=== PATIENT | female | born 1970 | race Caucasian/White ===

== ENCOUNTER → 2018-05-08 10:24 | Outpatient (CLI) | payer MEDICAID, SELFPAY ==
--- NOTE | 2018-05-08 10:26 | RAD_ITS ---
STUDY: X-RAY - RIGHT WRIST REASON FOR EXAM: Postop. TECHNIQUE: 3 view(s) of the wrist were obtained. COMPARISON: None. FINDINGS: There is an orthopedic plate and screws transfixing a distal radial fracture in anatomical alignment and position. There is a suspected intra-articular body at the dorsal aspect of the radiocarpal articulation. Normal distal radioulnar articulation. Normal carpal bones. Normal carpal articulations. Normal carpometacarpal articulation of the thumb. Normal second through fifth carpometacarpal articulations. Normal visualized metacarpal bones. The soft tissue structures are unremarkable. RAD/Wrist min 3 Views IMPRESSION: ORIF of distal radial fracture in anatomical alignment and position. Suspected intra-articular body at the dorsal aspect of the radiocarpal compartment. Electronically Signed: Neri Beyer MD at 15:13 EDT Tel , Service support ,
== END ==
PROVIDERS: Referring Provider Orthopaedic Surgery; Visit Provider Orthopaedic Surgery
DX: M25.531 Pain in right wrist (principal)
CPT/HCPCS: 73110

== ENCOUNTER → 2018-06-09 09:00 | Outpatient (CLI) | payer MEDICAID, SELFPAY ==
--- NOTE | 2018-06-09 09:01 | CT_ITS ---
Exam: CT of the right wrist. HISTORY: Pain. Previous fractures and surgeries. COMPARISON: Radiographs 05/08/2013. FINDINGS: This examination confirms satisfactory position of a compression plate and screws across the dorsal distal radius, for previous fracture repair. Currently no fracture lines are seen. The bone contour is normal. No complication is seen related to the compression plate or screws. There is a small calcific density approximately 3 mm in size just distal to the edge of the compression plate, and alongside the posterior lip of the radial metaphysis. This appears to be within soft tissues and not within the articular space. It does not appear to represent an intra-articular loose body is suggested on the radiographs. There is a normal appearance to the distal ulna. There is a normal appearance of the carpal bones. No significant degenerative changes are seen of the radiocarpal, intercarpal, carpometacarpal joints. Soft tissues are very poorly evaluated by extremity CT scan, but no gross soft tissue abnormality is seen. CT/Extremity Upper without Contra IMPRESSION: No definite abnormality seen other than the compression plate and screws of the distal radius. Electronically Signed: Manish Montana MD at 19:41 EDT , Service support ,
== END ==
PROVIDERS: Referring Provider Orthopaedic Surgery; Visit Provider Orthopaedic Surgery
DX: M25.531 Pain in right wrist (principal); Z98.890 Other specified postprocedural states
CPT/HCPCS: 73200

== ENCOUNTER 2018-06-13 09:33 | Emergency (ER) | payer MEDICAID, SELFPAY ==
[2018-06-13 09:34] VITALS: BP 122/75; PULSE 76; RESP 20; TEMP 36.4; O2SAT 94; BMI 35.6
--- NOTE | 2018-06-13 10:14 | ED.VISSUMM ---
- ER Visit Summary Date of Service: 06/13/18 Chief Complaint: Cough History of Present Illness: The patient is a 47 F past medical history of asthma and depression. Patient states for the past week she is nonproductive cough with wheezing. Subjective fever. Denies any nausea, vomiting or diarrhea. Patient states she was treated urgent care in the last several days. Placed on prednisone which she is nearly out of. Tessalon Perles which she states is not helping her cough. And has an inhaler. She does smoke about half pack of cigarettes a day. She states that at the urgent care they did a chest x-ray which she states showed no signs of pneumonia. Physical Examination: Well-appearing middle-age female. Vital signs are stable afebrile. Pulse ox 94% on room air no signs of hypoxia. No distress. H EENT exam moist mucous membranes posterior pharynx normal. Nasal congestion but no purulent discharge. TMs normal bilaterally. Neck nontender no lymphadenopathy. Trachea midline. Lungs dry cough. Expiratory wheezing. No rales nor rhonchi. Equal metrical. No signs of pneumonia. Heart regular rate and rhythm no murmur. Abdomen soft nontender. Moving all 4 extremities. Calves nontender no edema. Back nontender. Neurologically awake and alert no focal motor deficits. Test Results: None Emergency Department Course and Treatment: Patient will be written for prednisone 40 mg a day. Hycodan cough syrup. I explained her she did not need an antibiotic if this is a viral illness. She needs to stop smoking. Treatment Plan: Symptomatic treatment. Plenty of fluids and rest. Follow-up if not improving. Stop smoking. Return if worse. Disposition: Discharge Impression: Viral bronchitis Tobacco abuse This note was generated with [employer] dictation software. It may contain incorrect words, spelling, and punctuation that were not noted in review of the chart prior to signing ED Disposition - Plan for ED Patient: Chief Complaint: Cough Referrals: Care Physician,No Primary [Primary Care Provider] -
--- NOTE | 2018-06-13 10:17 | ED.DEP ---
ED Disposition - Plan for ED Patient: Disposition: Home or Assisted Living Chief Complaint: Cough Instructions: ED Bronchitis Asthmatic Prescriptions: Hydrocodone Bit/Homatropine [Hycodan Syrup] 10 ml GT Q4H PRN PRN 5 Days udc PRN Reason: Cough Prednisone [Deltasone] 40 mg PO DAILY 7 Days tab Referrals: Care Physician,No Primary [Primary Care Provider] - 10-14 Days if not better Additional Instructions: Stop smoking! Prednisone 40 mg a day for 7 days. Do not take both my prescription and your prior one just use one prescription at this dose. Inhaler as needed. Hycodan cough syrup for cough suppression. Do not drive while using Hycodan.
--- NOTE | 2018-06-14 09:52 | CM.ED ---
ED CALLBACK: Follow-up call placed to patient with no answer. Message states her voicemail has not yet been setup. Will reattempt call as time allows.
== END 2018-06-13 10:24 | disposition home or self-care (01) ==
PROVIDERS: Emergency Provider Emergency Medicine
DX: J20.8 Acute bronchitis due to other specified organisms (principal); F17.210 Nicotine dependence, cigarettes, uncomplicated; J45.909 Unspecified asthma, uncomplicated; F32.9 Major depressive disorder, single episode, unspecified; Z79.899 Other long term (current) drug therapy
CPT/HCPCS: 99282

== ENCOUNTER 2019-07-10 08:09 | Emergency (ER) | payer MEDICAID, SELFPAY ==
[2019-07-10 08:10] VITALS: BP 119/74; PULSE 83; RESP 18; TEMP 36.6; O2SAT 100; BMI 33.0
--- NOTE | 2019-07-10 08:28 | ED.VISSUMM ---
- ER Visit Summary Date of Service: 07/10/19 Chief Complaint: Back pain History of Present Illness: The patient is a 48 F with low back pain since yesterday. This happened after bending forward. The pain is in her lower back and does not radiate. Worse with movement. Patient denies associated symptoms like weakness or numbness. Denies GI, , or SCRATCH BRUSHER symptoms. Denies fever or recent illness. Denies any history of back surgery. Denies any history of immune compromise, fractures, or trauma. Physical Examination: Afebrile and vital signs are unremarkable. Alert and oriented. No acute distress. Mid lumbar spine tenderness to palpation. Otherwise overlying skin is normal. Straight leg raise negative. Good strength and sensation. Neurovascular intact distally. Test Results: None indicated Emergency Department Course and Treatment: Patient has myofascial back pain. She was treated with Norflex and Toradol. Will reassess. On reevaluation, patient is better. Will discharge on prescription for naproxen and Flexeril. Follow-up with primary care. Return for any new or worsening issues. Treatment Plan: As above Disposition: Discharged Impression: Lumbar back pain This note was generated with [employer] dictation software. It may contain incorrect words, spelling, and punctuation that were not noted in review of the chart prior to signing ED Disposition - Plan for ED Patient: Referrals: Care Physician,No Primary [Primary Care Provider] -
[2019-07-10] MEDS: Ketorolac 60 MG/2 ML Vial IM (08:37)
[2019-07-10] MEDS: Orphenadrine 60 MG/2 ML Ampul IM (08:37)
--- NOTE | 2019-07-10 09:06 | ED.DEP ---
ED Disposition - Plan for ED Patient: Instructions: BACK PAIN (Acute or Chronic) Prescriptions: cycloBENZAPRine HCl [Flexeril] 10 mg PO TID PRN #20 tab PRN Reason: Muscle Spasm Prescription Printed Naproxen [Naprosyn] 500 mg PO BID PRN #20 tab Prescription Printed Referrals: Pilar Perez [NON-STAFF] - As Needed
[2019-07-10 09:10] VITALS: RESP 16
--- NOTE | 2019-07-10 09:10 | ED.RN ---
REVIEWED D/C INSTRUCTIONS, FOLLOW UP CARE, PRESCRIPTIONS, AND S/S THAT WOULD WARRANT A RETURN TO THE ED WITH PT. PT VERBALIZED AN UNDERSTANDING AND DENIES FURTHER QUESTIONS FOR THIS RN. PT SKIN P/W/D, RESP EVEN AND UNLABORED, PT A&O X 3, NO DISTRESS NOTED. PT AMBULATED OUT OF ED, GAIT STEADY.R
== END 2019-07-10 09:12 | disposition home or self-care (01) ==
LOC: ED 08:30
PROVIDERS: Emergency Provider Emergency Medicine
DX: M54.5 Low back pain (principal); J45.909 Unspecified asthma, uncomplicated; I10 Essential (primary) hypertension; F32.9 Major depressive disorder, single episode, unspecified; Z87.01 Personal history of pneumonia (recurrent); Z86.19 Personal history of other infectious and parasitic diseases; Z79.899 Other long term (current) drug therapy; Z72.0 Tobacco use
CPT/HCPCS: 96372; 99282

== ENCOUNTER 2019-08-11 12:34 | Emergency (ER) | payer MEDICAID, SELFPAY ==
[2019-08-11 12:35] VITALS: BP 139/89; PULSE 86; RESP 17; TEMP 36.3; O2SAT 100; O2SAT 96; BMI 33.8
--- NOTE | 2019-08-11 13:24 | RAD_ITS ---
STUDY: X-RAY - RIGHT HAND REASON FOR EXAM: Female, 48 years old. Hand pain, worse in the fifth metatarsal, after fall. TECHNIQUE: Three view(s) of the hand on 4 images. COMPARISON: None. FINDINGS: Bones: Comminuted minimally displaced fracture of the base of the fifth metacarpal with intra-articular extension. Dorsal plate and screw fixation of the distal radius. Joints: The joints are unremarkable. Soft tissues: The soft tissues are unremarkable. Foreign body: None RAD/Hand Min 3 Views IMPRESSION: Comminuted minimally displaced fracture of base of fifth metacarpal with intra-articular extension. Electronically Signed: Bay Clarke MD at 13:54 EST , Service support ,
--- NOTE | 2019-08-11 14:14 | ED.DCSUM_ITS ---
History of Present Illness Chief Complaint: Upper Extremity Injury Informant: Patient Onset: Yesterday Narrative: Patient states that yesterday she is going the stairs when she slipped and fell. She hurt her right hand in the fall. She went to [facility] where she was told she had a broken hand and she was placed in a Velcro splint. Patient states she cannot figure out how to put the splint back on. She states however they did nothing for her including did not giving her anything but Tylenol for pain. She states she has an appoint with orthopedics in 3 to 4 days. Past Medical History - Allergies and Home Meds Allergies/Adverse Reactions: Allergies amoxicillin Allergy (Verified 08/11/19 12:34) Itching latex Allergy (Verified 08/11/19 12:34) Itching morphine Allergy (Verified 08/11/19 12:34) Itching codeine Adverse Reaction (Verified 08/11/19 12:34) Upset Stomach erythromycin base Adverse Reaction (Verified 08/11/19 12:34) Upset Stomach Tetracyclines Adverse Reaction (Verified 08/11/19 12:34) Upset Stomach Primary Care Physician: Care Physician,No Primary [Primary Care Provider] - Surgical History: noncontributory Smoking Status: Current every day smoker - Family History Maternal Family History: Reports: No pertinent history Review of Systems General: Denies: Chills, Fever, Sweats Eyes: Denies: Visual changes - bilaterally, Diplopia ENT: Denies: Rhinorrhea, Sore throat Cardiovascular: Denies: Chest pain, Palpitations Respiratory: Denies: Dyspnea, Cough, Dyspnea on exertion Gastrointestinal: Denies: Abdominal pain, Nausea, Vomiting, Diarrhea, Melena, Hematochezia Genitourinary: Denies: Dysuria, Hematuria, Frequency Musculoskeletal: Denies: Back pain, Extremity Pain Skin: Denies: Rash, Wounds Neurological: Denies: Headache, Weakness, Numbness Physical Exam Vital Signs/Narrative: Vital Signs Temp Pulse Resp BP Pulse Ox 08/11/19 12:35 97.3 F L 86 17 139/89 H 96 Inital Vital Signs reviewed: Yes General: Well nourished, Well developed, No Acute Distress Head: Normocephalic, Atraumatic Eyes: Perrl, EOMI ENT: Moist mucous membranes, No rhinorrhea Neck: Supple, Nontender Cardiovascular: Regular rate, Regular rhythm, No murmurs Respiratory: No distress, CTA bilaterally, Chest nontender Abdomen: Soft, Nontender, Nondistended, Normal bowel sounds Back: Nontender, Normal Inspection Extremities: No edema, - - Swelling ecchymosis and tenderness at the base of the fifth metacarpal. There is no open skin. Neurovascular intact Skin: Normal color, No rash Neurological: Alert, Oriented x3, Cranial nerves II-XII grossly intact, Normal Strength, Normal Sensation Psychological: Normal affect, Normal Mood Diagnostic/Tx/Re-eval - Medical Decision Making It was explained to the patient that I do not have access to [facility] imaging. Therefore I obtained my own 3 view which demonstrates a proximal fifth metacarpal fracture. She was placed in a plaster ulnar gutter splint ne urovascularly intact pre-and post application. I will write for some Davis. The patient will follow-up with orthopedics. ED Disposition - Plan for ED Patient: Disposition: Home or Assisted Living Diagnosis: Fracture of fifth metacarpal bone of right hand Instructions: FRACTURE, Boxer's Prescriptions: Hydrocodone Bitart/Apap 5-325 [Davis 5MG-325MG] 1 tab PO Q6H PRN PRN 3 Days #12 tab PRN Reason: Pain Prescription Printed Referrals: Miller Mauricio MD [STAFF PHYSICIAN] - As soon as possible
[2019-08-11 14:36] VITALS: RESP 18
== END 2019-08-11 14:39 | disposition home or self-care (01) ==
PROVIDERS: Emergency Provider Emergency Medicine
DX: S62.316A Displaced fracture of base of fifth metacarpal bone, right hand, initial encounter for closed fracture (principal); W10.9XXA Fall (on) (from) unspecified stairs and steps, initial encounter; Y93.9 Activity, unspecified; Y92.9 Unspecified place or not applicable; Y99.9 Unspecified external cause status; F17.200 Nicotine dependence, unspecified, uncomplicated; Z79.899 Other long term (current) drug therapy
CPT/HCPCS: 29125; 73130; 99282

== ENCOUNTER → 2019-08-19 10:46 | Outpatient (CLI) | payer MEDICAID, SELFPAY ==
[2019-08-11 12:35] VITALS: BMI 33.8
--- NOTE | 2019-08-19 10:47 | RAD_ITS ---
STUDY: X-RAY - RIGHT HAND REASON FOR EXAM: Female, 48 years old. F/U FOR RIGHT HAND FX BASE OF 5TH. TECHNIQUE: 3 view(s) of the hand. COMPARISON: 08/11/2019 FINDINGS: There are operative changes of the distal radius, stable. Normal distal radioulnar joint. Normal visualized carpal bones. Normal carpal articulations Normal carpometacarpal articulation of the thumb. Normal second through fifth carpometacarpal joints. Comminuted, intra-articular mildly displaced fracture of the base of the fifth metacarpal is stable. Normal metacarpophalangeal joint of the thumb. Normal interphalangeal joint of the thumb. Normal proximal and distal phalanges of the thumb. Normal metacarpophalangeal joints of the second through fifth fingers. Normal proximal and distal interphalangeal joints of the second through fifth fingers. Normal phalanges of the second through fifth fingers. The soft tissue structures are unremarkable. RAD/Hand Min 3 Views IMPRESSION: Stable comminuted, intra-articular mildly displaced fracture at the base of the fifth metacarpal. No significant bridging bone seen. Electronically Signed: Aj Hitchcock MD ([place]) at 15:28 EST , Service support ,
== END ==
PROVIDERS: Referring Provider Physician Assistant; Visit Provider Physician Assistant
DX: M25.531 Pain in right wrist (principal)
CPT/HCPCS: 73130

== ENCOUNTER 2020-04-13 10:30 | Outpatient (RCR) | payer MEDICAID, SELFPAY ==
[2019-08-19 13:58] VITALS: BMI 33.8
== END 2020-04-13 19:00 | disposition home or self-care (01) ==
LOC: PT 10:30
PROVIDERS: Referring Provider Anesthesiology Pain Medicine; Visit Provider Anesthesiology Pain Medicine
DX: M48.061 Spinal stenosis, lumbar region without neurogenic claudication (principal); M51.36 Other intervertebral disc degeneration, lumbar region; M46.96 Unspecified inflammatory spondylopathy, lumbar region
CPT/HCPCS: 97112; 97162

== ENCOUNTER 2020-06-04 10:00 | Outpatient (RCR) | payer MEDICAID, SELFPAY ==
[2019-08-19 13:58] VITALS: BMI 33.8
--- NOTE | 2020-05-04 11:45 | HP.PTEVAL_ITS ---
Patient's Visit Information HALEY GONZALEZ is a 49 year old F referred to Physical Therapy by Dr. John Capellan MD with a diagnosis of BACK AND LEG PAIN. Date of Evaluation: 05/04/20 Physical Therapist: Lee Cullen, PT, Cert MDT, OCS - Visit Plan Frequency: 2x /Week Duration: 4 Weeks Plan: YENNY PAINTER. PT INTERVENTIONS VERY GRADED DLS,POSTURAL EX'S,LE FLEXABLITY AND STRENGTHENING,MODLATIE NEEDED - Subjective This 49 y/o female presents to physical therapy for back and leg pain many years. Patient has pain located symmtrical lumbar . Patient has seen DR Mcclure for management .Patient has seen pain management with epidural in [place]. Recommended x-rays and MRI. Patient takes meoxicam. Patient c/o parathesia inl legs. Aggraveting factors sitting,standing,walking,bending ,lifting. Alleviating factors meds . Patient has MRI in past. Patient pian affects sleeping. Coughing/sneezing -. Bowel/bladder - Patient pain affects ADLS' and housework tasks. Patient symptoms affects QOL.PT in past has made symptoms worse.*LATEX ALLERGY*. VOCATION: unemployed. SOCIAL: - Pain Bilateral Back Pain Intensity (Out of 10): 5 Pain Intensity Range: 10 - Objective POSTURE: mild foward posture. PALAPTION: tender L-S region. SYMMTRIES: align. GAIT: reciprocal pattern. NEURO: c/o parathesia in legs ,reflexes L3-4,L4-5,L5- S1 1/3. MMT: quads/hams 4-/5,hip flexion 4-/5,ankle 4/5. LUMBA ROM: flexion mod loss,extension mod loss,side flides min/mod loss. FLEXABLITY: hams mild tight - Special Tests L/S Slump test left side: Negative L/S Slump test right side: Negative L/S Left Straight Leg Raise: Negative L/S Right Straight Leg Raise: Negative - Goals Goal 1:: Independant with HEP Goal Time Frame: 4-6 Weeks Goal 2:: Improve posture for ADLS' Goal Time Frame: 4-6 Weeks Goal 3:: Decrease lumbar pain by 50 % or > to improve QOL. Goal Time Frame: 4-6 Weeks Goal 4:: Patient improve lumbar ROM for function of recovery Goal Time Frame: 4-6 Weeks Goal 5:: Patient improve back owestry score by 5 points or > to improve qol. Goal Time Frame: 4-6 Weeks - Rehabilitation Potential Physical Therapy Diagnosis: This patient has chronic back pain with poor ROM for function of recovey ,poor core unable to do muscular endurance ,decrease strength impairs function and ADL'S thus benifit from skilled PT Rehabilitation Potential: Good - Anticipated Interventions Patient/Client Instruction: Educate patient on: Condition, Plan of Care For the Purpose of:: To decrease pain, To increase ROM, To improve muscle performance and motor function, To improve ability to perform ADL's, To increase tolerance to activity/condition/position, To improve ability of physical actions for home/community/work/leisure, To improve health of tissue, To decrease soft tissue restriction, To increase flexibility/ROM, To improve ability to perform tasks related to life management Therapeutic Exercise to Include: Strength training, Postural training, Flexibilty training, Dynamic Lumbar Stabilization For the Purpose of:: To decrease pain, To increase ROM, To improve muscle performance and motor function, To improve ability to perform ADL's, To increase tolerance to activity/condition/position, To improve ability of physical actions for home/community/work/leisure, To improve health of tissue, To decrease soft tissue restriction, To increase flexibility/ROM, To reduce risk of recurrence, To improve ability to perform tasks related to life management TENS: Yes IF ES: Yes Cryotherapy (ice pack, ice massage): Yes Thermo therapy (hot pack): Yes Ultrasound (thermal/non thermal): Yes For the Purpose of:: To decrease pain, To increase ROM, To improve nutrient delivery to tissue, To improve muscle performance and motor function, To improve health of tissue, To decrease soft tissue restriction Thank you for the opportunity to evaluate your patient. For Medicare and Medicare HMO plans, please review the plan of care and approve it. It will need to be FAXED BACK to us at [phone] for Medicare purposes. For Medicare only, by signing this I certify the plan of care. Please let me know if there are questions or concerns regarding this plan of care. Physician Signature: Date:
--- NOTE | 2020-11-13 15:02 | HP.PT.NRP ---
HALEY GONZALEZ was seen in my office for initial evaluation on 05/04/20. The following Plan of Care was established for this patient: Initial Frequency: 2x /Week Initial Duration: 4 Weeks Patient/Client Instruction: Educate patient on: Condition, Plan of Care For the Purpose of:: To decrease pain, To increase ROM, To improve muscle performance and motor function, To improve ability to perform ADL's, To increase tolerance to activity/condition/position, To improve ability of physical actions for home/community/work/leisure, To improve health of tissue, To decrease soft tissue restriction, To increase flexibility/ROM, To improve ability to perform tasks related to life management Therapeutic Exercise to Include: Strength training, Postural training, Flexibilty training, Dynamic Lumbar Stabilization For the Purpose of:: To decrease pain, To increase ROM, To improve muscle performance and motor function, To improve ability to perform ADL's, To increase tolerance to activity/condition/position, To improve ability of physical actions for home/community/work/leisure, To improve health of tissue, To decrease soft tissue restriction, To increase flexibility/ROM, To reduce risk of recurrence, To improve ability to perform tasks related to life management TENS: Yes IF ES: Yes Cryotherapy (ice pack, ice massage): Yes Thermo therapy (hot pack): Yes Ultrasound (thermal/non thermal): Yes For the Purpose of:: To decrease pain, To increase ROM, To improve nutrient delivery to tissue, To improve muscle performance and motor function, To improve health of tissue, To decrease soft tissue restriction This patient was last seen in our office . Pertinent comments regarding their Physical therapy will appear below: Patient seen for PT for DLS ,postural ex'sand HEP for back pain. At this point I will be discontinuing this patient from physical therapy. I would be happy to see this patient again in the future if found appropriate by the physician. Thank you! Lee Cullen, PT, Cert MDT, OCS
== END 2020-06-04 19:00 | disposition home or self-care (01) ==
LOC: PT 10:00
PROVIDERS: Visit Provider Anesthesiology Pain Medicine
DX: M54.9 Dorsalgia, unspecified (principal); M79.606 Pain in leg, unspecified
CPT/HCPCS: 97110; 97162

== ENCOUNTER → 2020-06-05 12:01 | Outpatient (CLI) | payer MEDICAID, SELFPAY ==
[2019-08-19 13:58] VITALS: BMI 33.8
--- NOTE | 2020-06-05 12:10 | RAD_ITS ---
HISTORY: CHRONIC BACK PAIN WITH RADIATION TO LEGS ADDITIONAL HISTORY: None provided. EXAMINATION/TECHNIQUE: XR Sacrum/Coccyx Min 2 Views Number of images including paperwork: 3 COMPARISON: None FINDINGS: BONES: No acute fracture. JOINTS: No subluxation. Mild to moderate discogenic degenerative changes at L4-5 and L5-S1. Facet arthropathy. SOFT TISSUES: No distinct foreign body. RAD/Sacrum-Coccyx min 2 Views IMPRESSION: Degenerative changes without acute osseous abnormality. at 2324 Reported and signed by: Myriam Santana MD Electronically Signed: Myriam Santana MD at 23:24 EDT Tel , Service support ,
--- NOTE | 2020-06-05 12:10 | RAD_ITS ---
HISTORY: CHRONIC BACK PAIN WITH RADIATION TO LEGS ADDITIONAL HISTORY: None provided. EXAMINATION/TECHNIQUE: XR Spine Lumbar 2 or 3 Views Number of images including paperwork: 2 COMPARISON: None FINDINGS: VERTEBRAE: No acute fracture. VERTEBRAL ALIGNMENT: No traumatic subluxation. DISKS AND JOINTS: Mild to moderate multilevel discogenic degenerative changes. Facet arthropathy, most pronounced L4-S1. SOFT TISSUES: Unremarkable paraspinous soft tissues. RAD/Lumbar Spine 2 or 3 Views IMPRESSION: No acute findings. Lumbar spondylosis. at 0716 Reported and signed by: Myriam Santana MD Electronically Signed: Myriam Santana MD at 7:16 EDT Tel , Service support ,
== END ==
PROVIDERS: Referring Provider Anesthesiology Pain Medicine; Visit Provider Anesthesiology Pain Medicine
DX: M79.606 Pain in leg, unspecified (principal)
CPT/HCPCS: 72100; 72220

== ENCOUNTER 2021-08-11 11:00 | Outpatient (RCR) | payer MEDICAID, SELFPAY ==
--- NOTE | 2021-05-06 11:34 | HP.PTEVAL ---
Patient's Visit Information HALEY GONZALEZ is a 50 year old F referred to Physical Therapy by Dr. John Capellan MD with a diagnosis of LUMBAR RADICULOPATHY. Date of Evaluation: 05/06/21 Physical Therapist: Lee Cullen PT, Cert MDT, OCS - Visit Plan Frequency: 2x /Week Duration: 4 Weeks Plan: PT INTERVETIONS MODALTIES ,POSTURAL EX'S , DLS ABD/BACK AND LE FLEXABLITY - Subjective This 50 y/o female presents physical therapy for Lumbar radiculopathy. Patient has back pain for many years . Patient cumulative affects over time with persist back pain with radicular lateral hip anterior thigh to foot with paresthesia. Seen Timi wants to do MRI. Patient has had epidural injections in past. MEDS -meloxicam, gabapentin. Patient has paresthesia left foot. Aggravating factors bending ,lifting walking and standing affects ADL'S and housework tasks, Alleviating factors heat. Coughing/sneezing-. Pain affects sleeping sleeping. Bowel/bladder -. No abnormal night pain .Patient has had PT in past. Patient pain affects ADLS' and housework task. Patient affects QOL . SOCIAL: single. VOCATION: unemployed - Pain Left Back Pain Intensity (Out of 10): 8 Pain Intensity Range: 10 Left Lower Extremity Pain Intensity (Out of 10): 6 Pain Intensity Range: 10 - Objective POSTURE: mild forward ,increase lordosis. GAIT: reciprocal pattern. SYMMTRIES: align. PALPTION: SI/LS. FLEXABLITY: HAMS WFL. LUMBAR ROM: flexion mod loss, extension mod loss, side glides min loss. MMT: QUADS/HAMS 4/5,HIP FLEXION 4-/5,ANKLE 4/5 - Special Tests L/S Slump test left side: Negative L/S Slump test right side: Negative L/S Left Straight Leg Raise: Negative L/S Right Straight Leg Raise: Negative Lumbar Standing: Flexion - Mechanical Response: No effect Lumbar Standing: Flexion - Symptoms During Testing: Increases Lumbar Standing: Flexion - Symptoms After Testing: Worse Comments:: LUMBAR Lumbar Standing: Extension - Mechanical Response: No effect Lumbar Standing: Extension - Symptoms During Testing: Increases Lumbar Standing: Extension - Symptoms After Testing: Worse Comments:: LUMBAR Lumbar Standing: Right Side Glides - Mechanical Response: No effect Lumbar Standing: Right Side [place] - Symptoms During Testing: No effect Lumbar Standing: Right Side [place] - Symptoms After Testing: No effect Lumbar Standing: Left Side [place] - Mechanical Response: No effect Lumbar Standing: Left Side [place] - Symptoms During Testing: No effect Lumbar Standing: Left Side [place] - Symptoms After Testing: No effect - Balance/Special Test Scores Oswestry Low Back Score: 25 - Goals Goal 1:: I with HEP to manage lumbar pain Goal Time Frame: 4-6 Weeks Goal 2:: Patient to improve posture/body mechanics 80% of the time Goal Time Frame: 4-6 Weeks Goal 3:: Patient to decrease lumbar radiculopathy by 50 % improvement to improve ADLS' Goal Time Frame: 4-6 Weeks Goal 4:: Patient to improve lumbar ROM for function of recovery Goal Time Frame: 4-6 Weeks Goal 5:: Patient to improve Back owestry score by 5 points to improve function Goal Time Frame: 4-6 Weeks - Rehabilitation Potential Physical Therapy Diagnosis: Patient has lumbar radiculopathy worse with motion testing and positional affects walking ,standing and bending impairs function with possible disc involvement thus benefit from skilled PT Rehabilitation Potential: Good - Anticipated Interventions Patient/Client Instruction: Educate patient on: Condition, Plan of Care For the Purpose of:: To decrease pain, To increase ROM, To improve muscle performance and motor function, To improve ability to perform ADL's, To increase tolerance to activity/condition/position, To improve performance and independence with ADL's, To improve ability of physical actions for home/community/work/leisure, To improve health of tissue, To decrease soft tissue restriction, To increase flexibility/ROM, To prevent re-injury Therapeutic Exercise to Include: Strength training, Endurance training, Balance training, Postural training, Flexibilty training, Dynamic Lumbar Stabilization Comment: BLE For the Purpose of:: To decrease pain, To increase ROM, To improve muscle performance and motor function, To improve ability to perform ADL's, To increase tolerance to activity/condition/position, To improve performance and independence with ADL's, To improve ability of physical actions for home/community/work/leisure, To improve health of tissue, To decrease soft tissue restriction, To increase flexibility/ROM, To improve endurance, To reduce risk of recurrence TENS: Yes IF ES: Yes Cryotherapy (ice pack, ice massage): Yes Thermo therapy (hot pack): Yes Ultrasound (thermal/non thermal): Yes For the Purpose of:: To decrease pain, To increase ROM, To improve nutrient delivery to tissue, To increase oxygenation perfusion, To improve health of tissue, To decrease soft tissue restriction Thank you for the opportunity to evaluate your patient. For Medicare and Medicare HMO plans, please review the plan of care and approve it. It will need to be FAXED BACK to us at [phone] for Medicare purposes. For Medicare only, by signing this I certify the plan of care. Please let me know if there are questions or concerns regarding this plan of care. Physician Signature: Date:
--- NOTE | 2021-08-11 11:26 | HP.PTDCSUM ---
It has been my pleasure to treat HALEY GONZALEZ referred by Dr. John Capellan MD, with the diagnosis of LUMBAR RADICULOPATHY for a total of 11 visit(s). Discharge Date: 08/11/21 Please see the following information for a summary of their discharge status. Subjective: Doing okay back is sore Left Back Pain Intensity (Out of 10): 4 Left Lower Extremity Pain Intensity (Out of 10): 0 % Improvement: 40 Objective/Function: POSTURE: mild foward posture. GAIT: reciprocal pattern. MMT: QUADS/HAMS 4/5,HIP FLEXION 4/5,ANKLE 4/5. LUMBAR ROM: flexion mod loss, extension min loss, side glides min loss Goal 1:: I with HEP to manage lumbar pain Goal Progress: Goal Met Goal 2:: Patient to improve posture/body mechanics 80% of the time Goal Progress: Progressing Goal 3:: Patient to decrease lumbar radiculopathy by 50 % improvement to improve ADLS' Goal Progress: Progressing Goal 4:: Patient to improve lumbar ROM for function of recovery Goal Progress: Progressing Goal 5:: Patient to improve Back owestry score by 5 points to improve function Goal Progress: Goal Met Plan: D/C If there are questions or concerns regarding this patient's physical therapy, please feel free to call me at [phone]. Thank you for the referral of this patient. Sincerely, Lee Cullen, PT, Cert MDT, OCS Balance/Gait/Functional tests - Balance/Special Test Scores Oswestry Low Back Score: 9
== END 2021-08-11 19:00 | disposition home or self-care (01) ==
LOC: PT 11:00
PROVIDERS: PCP Orthopaedic Surgery; Referring Provider Anesthesiology Pain Medicine; Visit Provider Anesthesiology Pain Medicine
DX: M54.50 Low back pain, unspecified (principal); M54.16 Radiculopathy, lumbar region
CPT/HCPCS: 97014; 97110; 97162; 97530; G0283

== ENCOUNTER 2021-10-13 11:02 | Outpatient (CLI) | payer MEDICAID, SELFPAY ==
--- NOTE | 2021-10-13 11:14 | MRI_ITS ---
STUDY: MRI LUMBAR SPINE WITHOUT CONTRAST REASON FOR EXAM: Female, 50 years old. BACK PAIN TECHNIQUE: Standardized fat and water weighted pulse sequences were obtained in the sagittal and axial planes. COMPARISON: Lumbar spine x-ray dated June 05, 2020 FINDINGS: T12-L1: Normal endplates. Mild disc desiccation Normal disc height and morphology. Normal bilateral facet joints. Normal central canal and bilateral lateral recesses. Normal bilateral intervertebral neural foramina. Normal lumbar lordosis. There is a levoscoliosis of the lumbar spine. Normal conus medullaris that terminates at the T12-L1 level. No marrow edema or fracture or compression deformity is present. L1-2: Retrolisthesis of L1 on L2 of 2 to 3 mm. Mild disc space narrowing with a diffuse disc spur complex. Normal bilateral facet joints. Normal central canal and bilateral lateral recesses. Normal bilateral intervertebral neural foramina. L2-3: Retrolisthesis of L2 on L3 of 2 to 3 mm. Mild disc space narrowing with a diffuse disc spur complex. Normal bilateral facet joints. Normal central canal and bilateral lateral recesses. Normal bilateral intervertebral neural foramina. L3-4: Normal endplates. Moderate asymmetric disc space narrowing with a diffuse disc spur complex. Retrolisthesis of L3 on L4 of no more than 2 mm. Normal bilateral facet joints. Normal central canal and bilateral lateral recesses. Normal bilateral intervertebral neural foramina. L4-5: Normal endplates. Moderate disc space narrowing with a diffuse disc spur complex. Slight retrolisthesis of L4 and L5 of 2 to 3 mm. Mild facet joint hypertrophy. Normal central canal and bilateral lateral recesses. Normal bilateral intervertebral neural foramina. L5-S1: Normal endplates. Mild disc space narrowing and minimal posterior annular bulging. Anterolisthesis of L5 on S1 of no more than 2 mm. Moderate facet joint hypertrophy and degeneration. Normal central canal and bilateral lateral recesses. Normal bilateral intervertebral neural foramina. Normal visualized sacral ala. Normal visualized paraspinous soft tissue structures. MRI/Spine Lumbar (Routine) IMPRESSION: 1. Multilevel degenerative changes, as described above. 2. No central canal stenosis or foraminal stenosis with nerve root compression. Electronically Signed: Kameron Chen MD at 14:19 EST ,
== END 2021-10-13 23:59 | disposition home or self-care (01) ==
LOC: MRI 11:03
PROVIDERS: PCP Orthopaedic Surgery; Visit Provider Anesthesiology Pain Medicine
DX: M54.16 Radiculopathy, lumbar region (principal)
CPT/HCPCS: 72148

== ENCOUNTER 2021-10-24 11:46 | Observation (INO) | payer MEDICAID, SELFPAY ==
[2021-10-24] VITALS (15 sets, daily range): BP systolic 104–154; BP diastolic 69–97; PULSE 68–91; RESP 14–18; TEMP 36–36.6; O2SAT 90–100; BMI 32.0
--- NOTE | 2021-10-24 12:17 | CT_ITS ---
STUDY: CT ABDOMEN AND PELVIS WITH CONTRAST REASON FOR EXAM: Female, 51 years old. abdominal pain RADIATION DOSAGE (If Supplied By Facility): CTDIvol = ( 17.94 ) mGy, DLP = ( 1087.58 ) mGycm TECHNIQUE: Transaxial images were obtained from the dome of the diaphragm to the symphysis pubis without oral contrast. IV 100mL Isovue-370 was administered. Sagittal and coronal images were reconstructed. Individualized dose optimization techniques were used for this CT. COMPARISON: None. FINDINGS: The visualized lung bases are unremarkable. The visualized portions of the heart are within normal limits. Normal liver. Gallbladder wall thickening and stranding of surrounding fat worrisome for acute cholecystitis. Correlation with right upper quadrant ultrasound is recommended. Normal spleen. Normal pancreas. Normal bilateral adrenal glands. Normal right kidney. Normal left kidney. There is a small hiatal hernia. Normal small intestine. Normal colon. The appendix is visualized and appears normal. Normal abdominal aorta. Normal inferior vena cava. Normal retroperitoneum. Normal urinary bladder. Normal abdominal wall. Normal osseous structures. CT/Abdomen/Pelvis W IV Cont ONLY IMPRESSION: Suspect acute cholecystitis. Clinical correlation and right upper quadrant ultrasound is recommended. Electronically Signed: Wilner Parmar MD at 13:48 EDT ,
--- NOTE | 2021-10-24 12:19 | ED.VIS.GI ---
HPI HPI - GI History of Present Illness Chief Complaint: Abd Pain Narrative Narrative: 51-year-old female with right-sided abdominal pain. She describes it as radiating around to her right flank. Patient states this began last evening while she was asleep. The last thing she ate was cereal about an hour before bedtime. Patient states she has nausea and vomited one time. Denies constipation or diarrhea. Patient states she is urinating frequently. Patient states she had a similar symptom in the past and waited a long time for it to resolve. She believed it to be indigestion. Patient has a history of pancreatitis and is unsure why. She states she is not a drinker. Patient has past surgical history of . PFSH PFSH Medical History ADD (attention deficit disorder) Chronic diarrhea DDD (degenerative disc disease) Depression with anxiety GERD (gastroesophageal reflux disease) Glucose intolerance Insomnia JOURDAN (obstructive sleep apnea) RLS (restless legs syndrome) Seasonal allergies Smoker Home Medications fluoxetine 40 mg PO DAILY 09/15/16 [History Last Taken 11/26/16] omeprazole 20 mg PO DAILY 09/15/16 [History Last Taken 11/26/16] oxcarbazepine 150 mg PO BID 09/15/16 [History Last Taken 11/26/16] albuterol sulfate 2 puff INHALATION Q4H PRN PRN 01/21/17 [History Last Taken Unknown] aripiprazole 20 mg PO DAILY 10/24/21 [History Last Taken Unknown] buspirone 10 mg PO DAILY 10/24/21 [History Last Taken Unknown] dextroamphetamine-amphetamine 30 mg PO BID 10/24/21 [History Last Taken Unknown] doxepin 25 - 50 mg PO QHS 10/24/21 [History Last Taken Unknown] dulaglutide [Trulicity] 0.75 mg SUBCUT QWEEK 10/24/21 [History Last Taken Unknown] gabapentin 300 mg PO TID 10/24/21 [History Last Taken Unknown] lamotrigine 150 mg PO DAILY 10/24/21 [History Last Taken Unknown] meloxicam 7.5 mg PO DAILY 10/24/21 [History Last Taken Unknown] metformin 1,000 mg PO BID 10/24/21 [History Last Taken Unknown] oxycodone-acetaminophen [Endocet] 1 tab PO Q4H PRN 5 Days #20 tab 10/24/21 [Rx Last Taken Unknown] pramipexole 0.125 mg PO QHS 10/24/21 [History Last Taken Unknown] Allergy/AdvReac Type Severity Reaction Status Date / Time amoxicillin Allergy Itching Verified 10/24/21 14:46 latex Allergy Itching Verified 10/24/21 14:46 morphine Allergy Itching Verified 10/24/21 14:46 codeine AdvReac Upset Verified 10/24/21 14:46 Stomach erythromycin base AdvReac Upset Verified 10/24/21 14:46 Stomach Tetracyclines AdvReac Upset Verified 10/24/21 14:46 Stomach Surgical History History of hysterectomy Social History Smoking Status: Current every day smoker tobacco type: cigarettes alcohol intake: never substance use type: does not use ROS ROS ED Constitutional Constitutional ED: Denies chills or fever(s) ENT ENT ED: Denies rhinorrhea or sore throat Cardiovascular Cardiovascular: Denies chest pain or palpitations Respiratory/Chest Respiratory/Chest: Denies cough or dyspnea Gastrointestinal Gastrointestinal: Reports abdominal pain, nausea and vomiting; Denies constipation or diarrhea Genitourinary Genitourinary ED: Reports urinary frequency; Denies dysuria Musculoskeletal Musculoskeletal: Denies arthralgias or myalgias Integumentary Denies rash Neurologic Neurologic: Denies headache(s) or paresthesias Psychiatric Psychiatric: Denies anxiety or depression EXAM Physical Exam Const Vital Signs: 10/24/21 11:47 10/24/21 13:46 10/24/21 14:16 Temperature 97 F L 98 F Temperature Source Temporal Temporal Pulse Rate 91 73 77 Respiratory Rate 18 16 16 Blood Pressure 147/97 H 112/70 110/74 Blood Pressure Mean 113 84 86 Blood Pressure Source Monitor Blood Pressure Position Semi-Fowlers Blood Pressure Location Right Arm Pulse Ox 100 97 97 Oxygen Delivery Method Room Air Room Air Room Air 10/24/21 14:25 Temperature 98 F Temperature Source Temporal Pulse Rate 74 Respiratory Rate 16 Blood Pressure 109/69 Blood Pressure Mean 82 Blood Pressure Source Blood Pressure Position Blood Pressure Location Pulse Ox 98 Oxygen Delivery Method Room Air Positive well nourished General Appearance ED: NAD; Negative for pallor HEENT Reports moist mucous membranes normocephalic and atraumatic Eyes PERRL and EOMs intact bilaterally General Eye ED: Negative for pale conjunctiva or scleral icterus Resp normal respiratory effort and clear to auscultation bilaterally Cardio regular rate and regular rhythm GI Palpation: tender epigastric and RUQ Back/Spine General Back: CVA tenderness Neuro Sensorium / Orientation: alert and oriented to person Psych mental status grossly normal Skin General Skin Exam: Negative for jaundice or pallor MDM MDM MDM Narrative Medical decision making narrative: Patient presenting with right upper quadrant pain. Patient given Dilaudid 0.5 mg IV as well as Zofran. Blood work was obtained and she has a leukocytosis of 11.8 with a slight left shift. Renal function and electrolytes are normal. LFTs are within normal limits. Serum negative. Urinalysis is negative for infection. CT of the abdomen pelvis with IV contrast is obtained and shows concerns for acute cholecystitis. Since there is no ultrasound here in the emergency room today I did speak with Dr. Gallo who was in the hospital currently and he came to evaluate the patient and did feel this was acute cholecystitis and took her to the operating room to remove her gallbladder. Patient was given Cipro and Flagyl prior to transfer and required another dose of Dilaudid for her pain. She is transported to the OR in stable condition. Impression: 1. Acute cholecystitis Lab Data Labs: Laboratory Results - last 24 hr 10/24/21 10/24/21 10/24/21 12:25 12:25 12:25 WBC 11.8 H RBC 4.99 Hgb 13.8 Hct 42.0 MCV 84.2 MCH 27.7 MCHC 32.9 RDW Std Deviation 40.6 RDW Coeff of Rosie 13.2 Plt Count 268 MPV 8.6 Immature Gran % (Auto) 0.300 Neut % (Auto) 74.3 H Lymph % (Auto) 19.8 [place] % (Auto) 4.2 Eos % (Auto) 0.8 Baso % (Auto) 0.6 Absolute Neuts (auto) 8.8 H Absolute Lymphs (auto) 2.33 Nucleated RBC % 0 Sodium 136 Potassium 4.2 Chloride 101 Carbon Dioxide 29.0 Anion Gap 6 BUN 12 Creatinine 0.92 Estim Creat Clear Calc 55.93 Est GFR (MDRD) Af Amer 82 Est GFR (MDRD) Non-Af 68 BUN/Creatinine Ratio 13.1 Glucose 163 H Calcium 9.3 Total Bilirubin 0.50 AST 23 ALT 44 Alkaline Phosphatase 85 Total Protein 7.0 Albumin 3.7 Globulin 3.3 Albumin/Globulin Ratio 1.1 Lipase 127 Serum , Qual NEGATIVE Urine Color Urine Clarity Urine pH Ur Specific [place] Urine Protein Urine Glucose (UA) Urine Ketones Urine Occult Blood Urine Nitrite Urine Bilirubin Urine Urobilinogen Ur Leukocyte Esterase Urine RBC Urine WBC Ur Squamous Epith Cells Urine Bacteria Urine Mucus 10/24/21 12:57 WBC RBC Hgb Hct MCV MCH MCHC RDW Std Deviation RDW Coeff of Rosie Plt Count MPV Immature Gran % (Auto) Neut % (Auto) Lymph % (Auto) [place] % (Auto) Eos % (Auto) Baso % (Auto) Absolute Neuts (auto) Absolute Lymphs (auto) Nucleated RBC % Sodium Potassium Chloride Carbon Dioxide Anion Gap BUN Creatinine Estim Creat Clear Calc Est GFR (MDRD) Af Amer Est GFR (MDRD) Non-Af BUN/Creatinine Ratio Glucose Calcium Total Bilirubin AST ALT Alkaline Phosphatase Total Protein Albumin Globulin Albumin/Globulin Ratio Lipase Serum , Qual Urine Color Yellow Urine Clarity Sl. Cloudy Urine pH 7.0 Ur Specific [place] 1.010 Urine Protein 30 H Urine Glucose (UA) 100 H Urine Ketones Negative Urine Occult Blood Negative Urine Nitrite Negative Urine Bilirubin Negative Urine Urobilinogen Normal Ur Leukocyte Esterase Negative Urine RBC 0 SEEN Urine WBC 0 SEEN Ur Squamous Epith Cells 0-5 SEEN Urine Bacteria 0 SEEN Urine Mucus 0 SEEN Radiography Diagnostic Testing: Clinical Impression(s) from Imaging Studies Abdomen/Pelvis CT 10/24/21 12:17 IMPRESSION: Suspect acute cholecystitis. Clinical correlation and right upper quadrant ultrasound is recommended. Electronically Signed: Wilner Parmar MD at 13:48 EDT , Discharge Plan Disposition Disposition: [facility] Discharge Date/Time: 10/24/21 14:26
[2021-10-24] MEDS: Ondansetron 4 MG/2 ML Vial IV (12:32)
[2021-10-24] MEDS: HYDROmorphone 0.5 MG/0.5 ML SYRINGE IV ×2 (12:33→14:14)
[2021-10-24 12:45] LABS: Absolute Lymphocyte Count 2.33 X10^3/uL (0.83-4.51); Absolute Neutrophil Count 8.8 X10^3/uL (2.0-7.7); Basophil# 0.07 X10^3/uL; Basophil% 0.6 % (0-1); Eosinophil# 0.09 X10^3/uL; Eosinophils% 0.8 % (0-5); Hemoglobin 13.8 g/dL (12.0-15.0); Lymphocyte # 2.33 X10^3/ul (0.83-4.51); Lymphocyte % 19.8 % (19-41); Mean Corp Hgb Conc 32.9 g/dL (32-36); Mean Corpuscular Hgb 27.7 pg (27.0-32.0); Mean Corpuscular Volume 84.2 fL (81-99); Mean Platelet Vol. 8.6 fl (6.2-12.0); Monocyte% 4.2 % (0-10); NRBC Flagged by Analyzer 0 % (0-5); Neutrophil # 8.76 X10^3/uL (2.7-7.7); Neutrophil % 74.3 % (47-70); Platelet Count 268 K/mm3 (150-450); RBC Distribution Width CV 13.2 % (11.6-14.6); RBC Distribution Width SD 40.6 fl (35.1-43.9); Red Blood Count 4.99 M/mm3 (4.2-5.4); White Blood Count 11.8 K/mm3 (4.4-11.0)
[2021-10-24 12:55] LABS: Internal QC Validated? YES +Cl - CLEAR BKGD; Pregnancy, Serum, hCG Quali. NEGATIVE Negative
[2021-10-24 13:03] LABS: Bacteria 0 SEEN /hpf (None Seen); Mucous, Urine 0 SEEN /hpf (<or=2+); Red Blood Cells-Urine 0 SEEN /hpf (0-5); White Blood Cells 0 SEEN /hpf (0-5)
[2021-10-24 13:03] LABS: ALB/GLOB Ratio 1.1 RATIO (0.9-2.4); AST(SGOT) 23 U/L (15-37); Alanine Aminotransfer ALT/SGPT 44 U/L (13-56); Albumin, Serum 3.7 g/dL (3.2-5.0); Alkaline Phosphatase 85 U/L (45-117); Anion Gap 6 (5-15); BUN 12 mg/dL (7-18); BUN/Creat Ratio 13.1 RATIO (10-20); Calcium,Total 9.3 mg/dL (8.5-10.1); Chloride 101 mmol/L (98-107); Creatinine, Serum 0.92 mg/dL (0.55-1.02); EST Glomerular Filtration Rate 68 mL/min (>60); Est Glom Filt Rate - Afr Amer 82 mL/min (>60); Estimated Creatinine Clearance 55.93 ml/min; Globulin 3.3 g/dL (2.2-4.2); Glucose 163 mg/dL (74-106); Lipase 127 U/L (73-393); Potassium 4.2 mmol/L (3.5-5.1); Sodium Level 136 mmol/L (136-145)
[2021-10-24 13:04] LABS: Color, Urine Yellow (Yellow); Glucose, Dipstick 100 mg/dl (Normal); Ketone-Dipstick Negative (Negative); Leukocyte Esterase-Dipstick Negative /ul (Negative); Nitrite-Dipstick Negative (Negative); Occult Blood-Urine Negative /ul (Negative); Protein-Dipstick 30 mg/dl (Negative); Urine Bilirubin Dipstick Negative (Negative); Urine Clarity Sl. Cloudy (Clear); Urine Urobilinogen Normal (Normal)
[2021-10-24 13:09] LABS: Squamous Epithelial Cells - UA 0-5 SEEN /hpf (5-10)
--- NOTE | 2021-10-24 14:08 | EX.PCM.CON.S ---
Assessment & Plan Assessment/Plan (1) Acute cholecystitis: PLAN: Plan will be perform a laparoscopic cholecystectomy My plan is to perform a laparoscopic cholecystectomy with intraoperative cholangiogram. The planned surgical procedure was discussed extensively with the patient. The risks, benefits, anticipated outcomes and possible complication were mentioned. My staff has also explained the procedure in understandable terms and the patient was given the option to take printed material concerning the planned procedure. The patient had the opportunity to ask questions concerning the planned procedure. The patient freely consents to the planned procedure. HPI Consult Data Date of Consult: 10/24/21 HPI Narrative HPI Narrative: HALEY GONZALEZ, is a 51 F who presents with right-sided abdominal pain. She describes it as radiating around to her right flank. Patient states this began last evening while she was asleep. The last thing she ate was cereal about an hour before bedtime. Patient states she has nausea and vomited one time. Denies constipation or diarrhea. Patient states she is urinating frequently. Patient states she had a similar symptom in the past and waited a long time for it to resolve. She believed it to be indigestion. Patient has a history of pancreatitis and is unsure why. She states she is not a drinker. Patient has past surgical history of . PFSH Medical History ADD (attention deficit disorder) Chronic diarrhea DDD (degenerative disc disease) Depression with anxiety GERD (gastroesophageal reflux disease) Glucose intolerance Insomnia JOURDAN (obstructive sleep apnea) RLS (restless legs syndrome) Seasonal allergies Smoker Home Medications fluoxetine 40 mg PO DAILY 09/15/16 [History Last Taken 11/26/16] omeprazole 20 mg PO DAILY 09/15/16 [History Last Taken 11/26/16] oxcarbazepine 150 mg PO BID 09/15/16 [History Last Taken 11/26/16] albuterol sulfate 2 puff INHALATION Q4H PRN PRN 01/21/17 [History Last Taken Unknown] aripiprazole 20 mg PO DAILY 10/24/21 [History Last Taken Unknown] buspirone 10 mg PO DAILY 10/24/21 [History Last Taken Unknown] dextroamphetamine-amphetamine 30 mg PO BID 10/24/21 [History Last Taken Unknown] doxepin 25 - 50 mg PO QHS 10/24/21 [History Last Taken Unknown] dulaglutide [Trulicity] 0.75 mg SUBCUT QWEEK 10/24/21 [History Last Taken Unknown] gabapentin 300 mg PO TID 10/24/21 [History Last Taken Unknown] lamotrigine 150 mg PO DAILY 10/24/21 [History Last Taken Unknown] meloxicam 7.5 mg PO DAILY 10/24/21 [History Last Taken Unknown] metformin 1,000 mg PO BID 10/24/21 [History Last Taken Unknown] pramipexole 0.125 mg PO QHS 10/24/21 [History Last Taken Unknown] Allergy/AdvReac Type Severity Reaction Status Date / Time amoxicillin Allergy Itching Verified 10/24/21 11:48 latex Allergy Itching Verified 10/24/21 11:48 morphine Allergy Itching Verified 10/24/21 11:48 codeine AdvReac Upset Verified 10/24/21 11:48 Stomach erythromycin base AdvReac Upset Verified 10/24/21 11:48 Stomach Tetracyclines AdvReac Upset Verified 10/24/21 11:48 Stomach Surgical History History of hysterectomy Social History Smoking Status: Current every day smoker tobacco type: cigarettes alcohol intake: never substance use type: does not use ROS Constitutional Constitutional: Denies chills, fatigue or fever(s) Cardiovascular Cardiovascular: Denies chest pain Respiratory/Chest Respiratory/Chest: Denies cough or dyspnea Gastrointestinal Gastrointestinal: Reports abdominal pain, nausea and vomiting; Denies diarrhea Genitourinary Genitourinary: Denies change in urinary stream Integumentary Integumentary: Denies jaundice Physical Exam Const alert and oriented x3 General Appearance: cooperative HEENT normocephalic and head/scalp atraumatic Eyes PERRL and EOMs intact bilaterally Neck full ROM Resp clear to auscultation bilaterally Cardio Rate: regular rate Rhythm: regular rhythm GI soft to palpation Palpation: tender RUQ; Negative for guarding Lab / Micro Data Result Diagrams: 10/24/21 12:25 10/24/21 12:25 Labs: Laboratory Results - last 24 hr 10/24/21 12:25: WBC 11.8 H, RBC 4.99, Hgb 13.8, Hct 42.0, MCV 84.2, MCH 27.7, MCHC 32.9, RDW Std Deviation 40.6, RDW Coeff of Rosie 13.2, Plt Count 268, MPV 8.6, Immature Gran % (Auto) 0.300, Neut % (Auto) 74.3 H, Lymph % (Auto) 19.8, [place] % (Auto) 4.2, Eos % (Auto) 0.8, Baso % (Auto) 0.6, Absolute Neuts (auto) 8.8 H, Absolute Lymphs (auto) 2.33, Nucleated RBC % 0 10/24/21 12:25: Sodium 136, Potassium 4.2, Chloride 101, Carbon Dioxide 29.0, Anion Gap 6, BUN 12, Creatinine 0.92, Estim Creat Clear Calc 55.93, Est GFR (MDRD) Af Amer 82, Est GFR (MDRD) Non-Af 68, BUN/Creatinine Ratio 13.1, Glucose 163 H, Calcium 9.3, Total Bilirubin 0.50, AST 23, ALT 44, Alkaline Phosphatase 85, Total Protein 7.0, Albumin 3.7, Globulin 3.3, Albumin/Globulin Ratio 1.1, Lipase 127 10/24/21 12:25: Serum , Qual NEGATIVE 10/24/21 12:57: Urine Color Yellow, Urine Clarity Sl. Cloudy, Urine pH 7.0, Ur Specific [place] 1.010, Urine Protein 30 H, Urine Glucose (UA) 100 H, Urine Ketones Negative, Urine Occult Blood Negative, Urine Nitrite Negative, Urine Bilirubin Negative, Urine Urobilinogen Normal, Ur Leukocyte Esterase Negative, Urine RBC 0 SEEN, Urine WBC 0 SEEN, Ur Squamous Epith Cells 0-5 SEEN, Urine Bacteria 0 SEEN, Urine Mucus 0 SEEN Radiology Impression Abdomen/Pelvis CT 10/24/21 12:17 IMPRESSION: Suspect acute cholecystitis. Clinical correlation and right upper quadrant ultrasound is recommended. Electronically Signed: Wilner Parmar MD at 13:48 EDT ,
[2021-10-24] MEDS: metroNIDAZOLE 500 MG/100 ML BAG 100 MG IV ×2 (14:42→22:14)
--- NOTE | 2021-10-24 15:00 | GALL_PTH ---
PATIENT: HALEY GONZALEZ LOC: [facility]3 U#:[id number] AGE/SX: 51/F ROOM: MS308 RE10/24/[address]: Dr. Teja Gallo MD : [id number] BED: 1 DIS: 10/25/2021 SPEC #: [id number] RECD: 10/25/21 07:15 STATUS: ELAINA RECally #: [id number] BUSTER: 10/24/21 15:[address]: Teja Gallo DEPT: SURGICAL PATHOLOGY RECD BY: Jill Hair ENTERED: 10/25/21 08:44 SP TYPE: JOS ISABEL DR: Dr. Tee Strickland MD Tissues: Gallbladder, NOS Procedures: Surgery Specimen Level III HEADER OPERATION: Laparoscopic cholecystectomy PRE-OP DIAGNOSIS: Acute cholecystitis TISSUE SUBMITTED: Gallbladder MICROSCOPIC DIAGNOSIS Gallbladder, cholecystectomy: Acute and chronic cholecystitis and cholelithiasis. Benign pericystic lymph node. AM:rodney 10/26/2021 MICROSCOPIC DESCRIPTION Slides are reviewed. GROSS DESCRIPTION Received is one container labeled with the patient's name and designated gallbladder. The specimen consists of a gallbladder measuring 9.5 cm in length and up to 4 cm in diameter. The external surface is pink-lindo, smooth and glistening for the most part. Focally it is granular, hemorrhagic and contains cautery artifact. The gallbladder contains green-yellow mucoid bile, sludge material and one ovoid, yellowish-brown stone measuring 1.5 cm in greatest dimension. The mucosa is bile-stained and without any mass lesions. The gallbladder wall measures up to 0.3 cm in thickness. Also present close to cystic duct is a possible lymph node measuring 0.5 cm in greatest dimension. Rotor Balancer sections from the gallbladder and the cystic duct including entire possible lymph node are submitted in one cassette. / GUILLERMO:rodney 10/25/2021 TC:2 CPT: 59731
[2021-10-24] MEDS: Ciprofloxacin 400 MG/200 ML BAG 200 MG IV ×2 (15:11→21:10)
--- NOTE | 2021-10-24 15:20 | EKG12_ITS ---
Test Reason : POST-OP Blood Pressure : / mmHG Vent. Rate : 068 BPM Atrial Rate : 068 BPM P-R Int : 134 ms QRS Dur : 084 ms QT Int : 444 ms P-R-T Axes : 061 062 050 degrees QTc Int : 472 ms Normal sinus rhythm Normal ECG When compared with ECG of 21-JAN-2017 09:42, No significant change was found Confirmed by MARBELLA MOTLEY, CARLOS ([id number]), acquisition editor BINTA VIGIL ([id number]) on 10/28/2021 9:18:14 AM Referred By: ILENE Confirmed By:CARLOS TYSON MD
--- NOTE | 2021-10-24 15:52 | PCM.OPRPT ---
Problems Associated Problem List Diagnoses (1) Acute cholecystitis: Report of Operation Date of Procedure: 10/24/21 Pre-Operative Diagnosis: Acute cholecystitis Post-Operative Diagnosis: Same Surgery/Procedure Performed:: Laparoscopic cholecystectomy Surgeon: Teja Gallo relief charge nurse: Bernabe Schmidt Type of Anesthesia: General Anesthesiologist: Marcelo Owens Specimen's removed: Gallbladder Drains: None Estimated Blood Loss (mL): 100 cc Description of Procedure: Patient was brought into the operating room. Placed in the supine position. Under excellent general anesthetic. The abdomen was sterilely prepped and draped in the usual fashion. Local was injected infraumbilically. Dissection was carried down to the fascia. The fascia was grasped with a [place]. Varies needle was placed inside the abdomen. The abdomen was insufflated to 15 torr. A 10/12 trocar was placed without difficulty. The patient was placed in the head up and rotated to the left position. Subxiphoid #5 trochars placed, inferior to this another #5 trocar was placed, laterally a #5 trocar was placed. All of these were placed under direct visualization without injury to underlying structures. Patient was noted to have acute cholecystitis. I aspirated out the gallbladder. I grasped the fundus of the gallbladder and retracted in cephalad direction. I took down dense adhesions from the gallbladder. Everything was quite friable and wanted to use significantly. I dissected out the cystic duct. I placed hemoclips proximally and distally and ligated the duct. I dissected the cystic artery. I placed hemoclips proximally and distally and ligated the artery. I deliver the gallbladder from the gallbladder bed with use of electrocautery placed in a specimen bag and delivered through the umbilical port without difficulty. I used the argon beam regional rehabilitation director to obtain good hemostasis on the liver bed. Once this was done I placed Nicole in the bed. No further bleeding was identified. I removed all the trochars under direct visualization good with stasis was noted. Close the fascia the umbilical port with a [id number] stitch of 0 Vicryl. Skin incisions were closed with subcuticular stitches of 4-0 Monocryl. Steri-Strips were applied sterile dressings were applied and the patient tolerated the procedure well. Admit VTE Documentation VTE Present on Admission: No VTE Mechan Device Prophylaxis: SCD's VTE Pharm Prophylaxis ordered?: No Reason prophylaxis not ordered:: Treatment Not Indicated
--- NOTE | 2021-10-24 16:13 | EX.PCM.DISCH ---
Discharge Instructions Procedure Gallbladder Diet Discharge Diet: Light diet - advance as tolerated Activity Discharge Activity: May Not Drive (for 2-3 days or while taking narcotic pain medications.) and - (Do not drive, work heavy equipment or sign legal documents for 24 hours.) May shower in (days): 1 (with the bandage in place.) Additional Activity Instructions:: Pain medication may cause nausea. You should typically eat light foods as you take your pain medications. Pain medication may also cause constipation. If this is a problem for you, please discuss with your doctor. Dressing / Incision Call your doctor if your incision/area has: Continuous Slow Oozing, Sudden Increased Bleeding, Increased Pain/ Swelling, Increased Redness and Foul Smelling Discharge Call your doctor if you observe: Fever of 101 or Higher Suture Line Care: Avoid Pulling/Pushing and Avoid Pinching/Bending Additional Dressing/Incision Instructions:: Leave operative bandaids on for 2 days. When you remove dressing, leave Steri-Strips on until your follow-up appointment, or until the Steri-Strips fall off on their own. Follow Up Care Please Follow Up With: Stephanie Cantu PA-C When: Call office to schedule an appointment to be seen in 7 days after surgery. Test Results: Test results from this visit will be discussed in further detail at your follow-up appointment, if applicable. Discharge Plan Admission Admit Date/Time: 10/24/21 15:52 Attending Provider: Teja Gallo Primary Care Provider: Tee Strickland Discharge Orders/Prescriptions Prescriptions: New oxycodone-acetaminophen [Endocet] 5-325 mg tablet 1 tab PO Q4H PRN (Reason: pain) 5 Days Qty: 20 RF: 0 No Action oxcarbazepine 150 MG tablet 150 mg PO BID RF: 0 omeprazole 20 MG capsule 20 mg PO DAILY RF: 0 fluoxetine 20 MG capsule 40 mg PO DAILY RF: 0 albuterol sulfate 18 GM HFA aerosol inhaler 2 puff Inhalation Q4H PRN PRN (Reason: Wheezing) RF: 0 lamotrigine 150 mg tablet 150 mg PO DAILY RF: 0 metformin 500 mg tablet 1,000 mg PO BID RF: 0 doxepin 25 mg capsule 25 - 50 mg PO QHS RF: 0 dextroamphetamine-amphetamine 30 mg tablet 30 mg PO BID RF: 0 meloxicam 7.5 mg tablet 7.5 mg PO DAILY RF: 0 buspirone 10 mg tablet 10 mg PO DAILY RF: 0 pramipexole 0.125 mg tablet 0.125 mg PO QHS RF: 0 gabapentin 300 mg capsule 300 mg PO TID RF: 0 aripiprazole 20 mg tablet 20 mg PO DAILY RF: 0 Trulicity 0.75 mg/0.5 mL pen injector 0.75 mg SUBCUT QWEEK RF: 0 Referrals / Follow Up: Tee Strickland MD [Primary Care Provider] - Stephanie Cantu PAAmbikaC [PHYSICIAN SCHOOL FUNDRAISING DIRECTOR] -
[2021-10-24 17:26] LABS: Bedside Glucose 114 mg/dL (74-106)
[2021-10-24] MEDS: Bupivacaine Mpf 0.5% 30 ML VIAL (21:07)
[2021-10-24] MEDS: 0.9% Normal Saline 1,000 ML 75 ML IV (21:08)
[2021-10-24] MEDS: oxyCODONE 5 MG Tablet PO (21:10)
[2021-10-24] MEDS: Doxepin Hcl 25 MG Capsule PO (22:14)
[2021-10-24] MEDS: Pramipexole Di-HCl 0.125 MG Tablet PO (22:14)
[2021-10-24] MEDS: Gabapentin 300 MG Capsule PO (22:14)
[2021-10-24] MEDS: OXcarbazepine 150 MG Tablet PO (22:15)
[2021-10-24 22:21] LABS: Bedside Glucose 148 mg/dL (74-106)
[2021-10-25 01:44] VITALS: BP 99/70; PULSE 72; RESP 16; TEMP 36.6; O2SAT 94
[2021-10-25] MEDS: oxyCODONE 5 MG Tablet PO ×2 (02:43→13:06)
[2021-10-25] MEDS: metroNIDAZOLE 500 MG/100 ML BAG 100 MG IV ×2 (05:09→13:15)
[2021-10-25] MEDS: Gabapentin 300 MG Capsule PO ×2 (05:15→14:49)
[2021-10-25 05:25] VITALS: BP 110/67; PULSE 75; RESP 16; TEMP 36.6; O2SAT 99
[2021-10-25 05:36] LABS: Bedside Glucose 129 mg/dL (74-106)
[2021-10-25 06:27] LABS: Absolute Lymphocyte Count 2.53 X10^3/uL (0.83-4.51); Absolute Neutrophil Count 4.9 X10^3/uL (2.0-7.7); Basophil# 0.04 X10^3/uL; Basophil% 0.5 % (0-1); Eosinophil# 0.14 X10^3/uL; Eosinophils% 1.7 % (0-5); Hematocrit 37.3 % (37-47); Lymphocyte # 2.53 X10^3/ul (0.83-4.51); Lymphocyte % 30.8 % (19-41); Mean Corp Hgb Conc 32.2 g/dL (32-36); Mean Corpuscular Volume 86.9 fL (81-99); Mean Platelet Vol. 8.7 fl (6.2-12.0); Monocyte# 0.61 X10^3/uL; Monocyte% 7.4 % (0-10); NRBC Flagged by Analyzer 0 % (0-5); Neutrophil # 4.86 X10^3/uL (2.7-7.7); Neutrophil % 59.2 % (47-70); Platelet Count 222 K/mm3 (150-450); RBC Distribution Width CV 13.5 % (11.6-14.6); RBC Distribution Width SD 42.9 fl (35.1-43.9); Red Blood Count 4.29 M/mm3 (4.2-5.4); White Blood Count 8.2 K/mm3 (4.4-11.0)
[2021-10-25 06:52] LABS: ALB/GLOB Ratio 1.1 RATIO (0.9-2.4); AST(SGOT) 41 U/L (15-37); Alanine Aminotransfer ALT/SGPT 51 U/L (13-56); Albumin, Serum 3.1 g/dL (3.2-5.0); Alkaline Phosphatase 76 U/L (45-117); Anion Gap 5 (5-15); BUN 15 mg/dL (7-18); BUN/Creat Ratio 14.3 RATIO (10-20); Calcium,Total 8.1 mg/dL (8.5-10.1); Chloride 103 mmol/L (98-107); Creatinine, Serum 1.05 mg/dL (0.55-1.02); EST Glomerular Filtration Rate 58 mL/min (>60); Est Glom Filt Rate - Afr Amer 71 mL/min (>60); Estimated Creatinine Clearance 49.01 ml/min; Globulin 2.9 g/dL (2.2-4.2); Glucose 156 mg/dL (74-106); Potassium 3.4 mmol/L (3.5-5.1); Sodium Level 136 mmol/L (136-145)
[2021-10-25 08:35] VITALS: BP 101/60; PULSE 79; RESP 16; TEMP 36.5; O2SAT 97
[2021-10-25] MEDS: metFORMIN HCl 1,000 MG Tablet 1000 MG PO (09:16)
[2021-10-25] MEDS: Ciprofloxacin 400 MG/200 ML BAG 200 MG IV (10:22)
[2021-10-25] MEDS: Pantoprazole Sodium 20 MG Tablet PO (10:23)
--- NOTE | 2021-10-25 12:41 | PCM.PN.SRG ---
Subjective Subjective Patient complaining of appropriate soreness. No nausea or vomiting Objective Data Objective Data Dressings are dry abdomen is soft Vital Signs: Vital Signs Temp Pulse Resp BP Pulse Ox 97.7 F L 79 16 101/60 97 10/25/21 08:35 10/25/21 08:35 10/25/21 08:35 10/25/21 08:35 10/25/21 08:35 Oxygen Flow Rate (L/min) 2 Oxygen Delivery Method Nasal Cannula Weight: 175 lb Body Mass Index (BMI) 32.0 Intake & Output: Intake and Output for Last 24 Hours 10/23/21 10/24/21 10/25/21 22:59 23:59 23:59 Intake Total 700 / 700 Output Total 400 / 400 Balance 300 / 300 Lab / Micro Data Result Diagrams: 10/25/21 05:50 10/25/21 05:50 Labs: Laboratory Results - last 24 hr 10/24/21 12:25: WBC 11.8 H, RBC 4.99, Hgb 13.8, Hct 42.0, MCV 84.2, MCH 27.7, MCHC 32.9, RDW Std Deviation 40.6, RDW Coeff of Rosie 13.2, Plt Count 268, MPV 8.6, Immature Gran % (Auto) 0.300, Neut % (Auto) 74.3 H, Lymph % (Auto) 19.8, [place] % (Auto) 4.2, Eos % (Auto) 0.8, Baso % (Auto) 0.6, Absolute Neuts (auto) 8.8 H, Absolute Lymphs (auto) 2.33, Nucleated RBC % 0 10/24/21 12:25: Sodium 136, Potassium 4.2, Chloride 101, Carbon Dioxide 29.0, Anion Gap 6, BUN 12, Creatinine 0.92, Estim Creat Clear Calc 55.93, Est GFR (MDRD) Af Amer 82, Est GFR (MDRD) Non-Af 68, BUN/Creatinine Ratio 13.1, Glucose 163 H, Calcium 9.3, Total Bilirubin 0.50, AST 23, ALT 44, Alkaline Phosphatase 85, Total Protein 7.0, Albumin 3.7, Globulin 3.3, Albumin/Globulin Ratio 1.1, Lipase 127 10/24/21 12:25: Serum , Qual NEGATIVE 10/24/21 12:57: Urine Color Yellow, Urine Clarity Sl. Cloudy, Urine pH 7.0, Ur Specific Reading 1.010, Urine Protein 30 H, Urine Glucose (UA) 100 H, Urine Ketones Negative, Urine Occult Blood Negative, Urine Nitrite Negative, Urine Bilirubin Negative, Urine Urobilinogen Normal, Ur Leukocyte Esterase Negative, Urine RBC 0 SEEN, Urine WBC 0 SEEN, Ur Squamous Epith Cells 0-5 SEEN, Urine Bacteria 0 SEEN, Urine Mucus 0 SEEN 10/24/21 17:20: POC Glucose 114 H 10/24/21 22:12: POC Glucose 148 H 10/25/21 05:31: POC Glucose 129 H 10/25/21 05:50: WBC 8.2, RBC 4.29, Hgb 12.0, Hct 37.3, MCV 86.9, MCH 28.0, MCHC 32.2, RDW Std Deviation 42.9, RDW Coeff of Rosie 13.5, Plt Count 222, MPV 8.7, Immature Gran % (Auto) 0.400, Neut % (Auto) 59.2, Lymph % (Auto) 30.8, [place] % (Auto) 7.4, Eos % (Auto) 1.7, Baso % (Auto) 0.5, Absolute Neuts (auto) 4.9, Absolute Lymphs (auto) 2.53, Nucleated RBC % 0 10/25/21 05:50: Sodium 136, Potassium 3.4 L, Chloride 103, Carbon Dioxide 28.0, Anion Gap 5, BUN 15, Creatinine 1.05 H, Estim Creat Clear Calc 49.01, Est GFR (MDRD) Af Amer 71, Est GFR (MDRD) Non-Af 58 L, BUN/Creatinine Ratio 14.3, Glucose 156 H, Calcium 8.1 L, Total Bilirubin 0.70, AST 41 H, ALT 51, Alkaline Phosphatase 76, Total Protein 6.0 L, Albumin 3.1 L, Globulin 2.9, Albumin/Globulin Ratio 1.1 Micro: Microbiology 10/24/21 14:13 Nasal Secretion SARS-CoV-2 Antigen (Rapid) - Final Radiography Diagnostic Testing: Radiology Impression Abdomen/Pelvis CT 10/24/21 12:17 IMPRESSION: Suspect acute cholecystitis. Clinical correlation and right upper quadrant ultrasound is recommended. Electronically Signed: Wilner Parmar MD at 13:48 EDT , Assessment & Plan Assessment/Plan (1) Acute cholecystitis: PLAN: Postoperative day #1 We will discharge patient home today.
[2021-10-25 12:59] VITALS: BP 109/70; PULSE 82; RESP 18; TEMP 36.7; O2SAT 94
[2021-10-25 13:24] VITALS: O2SAT 98
[2021-10-25 13:25] LABS: Bedside Glucose 205 mg/dL (74-106)
[2021-10-25] MEDS: Meloxicam 7.5 MG Tablet PO (14:48)
[2021-10-25 16:44] VITALS: BP 111/66; PULSE 92; RESP 18; TEMP 36.7; O2SAT 100
== END 2021-10-25 16:39 | disposition home or self-care (01) ==
LOC: ED 12:24 → SDC 14:08 → ACINP 14:09 → SDC 17:12 → MS3 17:12
PROVIDERS: Admitting Provider Surgery; Emergency Provider Student in an Organized Health Care Education/Training Program; PCP Orthopaedic Surgery; Visit Provider Surgery
PROC: (CPT 47562; principal; 2021-10-24 15:00)
DX: K80.12 Calculus of gallbladder with acute and chronic cholecystitis without obstruction (principal); F41.8 Other specified anxiety disorders; F98.8 Other specified behavioral and emotional disorders with onset usually occurring in childhood and adolescence; K21.9 Gastro-esophageal reflux disease without esophagitis; G47.33 Obstructive sleep apnea (adult) (pediatric); Z79.899 Other long term (current) drug therapy; Z79.84 Long term (current) use of oral hypoglycemic drugs; G25.81 Restless legs syndrome; F17.210 Nicotine dependence, cigarettes, uncomplicated
CPT/HCPCS: 47562; 00790; 36415; 74177; 80053; 81001; 82962; 83690; 84703; 85025; 87811; 88304; 93005; 96361; 96365; 96366; 96375; 96376; 99218; 99251; 99284; 99406; J7030; Q9967; A4216; G0378; G0463; J0744; J2405